=== PATIENT | female | born 1975 | race African-American/Black ===

== ENCOUNTER 2017-11-14 20:34 | Emergency (ER) | payer OTHER ==
[~2017-11-14] VITALS: Ht 170.2 cm; Wt 107.2 kg
[~2017-11-14 20:34] MED LIST: ATIVAN0.5 MG PO; CETIRIZINE HCL10 M2 PO; FENTANYL1 EAC5 TD; FLAGYL500 MG PO; FLUOXETINE HCL20 M1 PO; FOLATE PO; Fish Oil PO; LACTULOSE10 GM/151 PO; LEVAQUIN750 MG PO; LOPRESSOR25 MG PO; LORAZEPAM0.5 MG PO; MOTRIN400 MG PO; NORCO 5/3251 TABLET PO; PHENERGAN12.5 M1 PO; POLYETHYLENE GL17 GM PO; PREDNISONE50 MG PO; PROTONIX40 MG PO; PROzac PO; RANITIDINE HCL150 MG PO; THERAGRAN1 TABLET PO; THIAMINE,VITAM100 MG PO; TRAMADOL HCL50 MG PO; VIT D PO; ZOFRAN4 MG PO
[2017-11-14 21:03] LABS: HEMATOCRIT 40.4 % (36.0-46.0); HEMOGLOBIN 13.5 G/DL (11.9-15.5); MCH 30.7 PG (29.0-34.0); MCHC 33.4 G/DL (30.0-36.0); MCV 91.8 FL (83-99); PLATELET COUNT 328 K/uL (156-360); RBC DIS.WIDTH-CV 12.6 % (11.8-14.6); RBC DIS.WIDTH-SD 42.5 % (39-53); WHITE BLOOD COUNT 12.3 K/uL (4.1-10.2)
[2017-11-14 21:12] LABS: CHLORIDE 105 mEq/L (99-109); POTASSIUM 4.5 mEq/L (3.7-5.4); SODIUM 139 mEq/L (136-147)
[2017-11-14 21:13] LABS: GLUCOSE 128 mg/dL (70-99)
[2017-11-14 21:17] LABS: CREATININE 0.8 mg/dL (0.6-1.3); GFR ESTIMATE (CALCULATED) > 59 mL/min/
[2017-11-14 21:18] LABS: UREA NITROGEN (BUN) 8 mg/dL (9-23)
[2017-11-14 21:23] LABS: TROP-I INTERPRETATION NEGATIVE; TROPONIN-I < 0.01 ng/mL (0.0-0.30)
[2017-11-14] MEDS ORDERED: ATARAX,VISTARIL50 MG PO (22:11)
[2017-11-15 00:12] LABS: TROP-I INTERPRETATION NEGATIVE; TROPONIN-I < 0.01 ng/mL (0.0-0.30)
[2017-11-15 00:38] VITALS: BP 146/93
== END 2017-11-15 00:39 | disposition home or self-care (01) ==
LOC: EME 20:34
PROVIDERS: Physician Assistant
DX: R07.89 Other chest pain (principal); I10 Essential (primary) hypertension; G43.909 Migraine, unspecified, not intractable, without status migrainosus; K90.41 Non-celiac gluten sensitivity; F41.9 Anxiety disorder, unspecified; F32.9 Major depressive disorder, single episode, unspecified; Z82.49 Family history of ischemic heart disease and other diseases of the circulatory system; Z88.6 Allergy status to analgesic agent; Z88.8 Allergy status to other drugs, medicaments and biological substances
CPT/HCPCS: 71046; 80048; 84484; 85027; 93005; 99281; 99284